=== PATIENT | male | born 1995 | race Asian ===

== ENCOUNTER 2018-07-01 02:02 | Emergency (ER) | payer BC ==
[~2018-07-01] VITALS: Ht 172.7 cm; Wt 68.0 kg
[2018-07-01 02:05] VITALS: BP 129/55
--- NOTE | 2018-07-01 02:05 | NUR ---
TO BED # 3 AMBULATORY, REPORT GIVEN GIULIANO GONCALVES
--- NOTE | 2018-07-01 02:05 | NUR ---
PT PRESENTS TO ED WITH C/O ETOH INTOXICATION WITH N/V. PT STATES "I DRANK WAY TOO MUCH BEER AND WHISKEY" PT DENIES PAIN AT THIS TIME. PT ANSWERING IN COMPLETE SENTECES. OBVIOUS ODOR OF ETOH PRESENT. GIRLFIREND AT BEDSIDE. PT PLACED INTO BED, PENDING MD HUDSON. PMH--NONE RX--NONE
[2018-07-01] MEDS ORDERED: ONDANSETRON 4 MG/2 ML VIAL IVP ONE (02:15)
[2018-07-01] MEDS ORDERED: NACL 0.9% 1,000 ML IV ONE (02:15)
--- NOTE | 2018-07-01 02:32 | NUR ---
ATTEMPTED TO MEDICATE PT WITH IV ZOFRAN ORDERED BY ER MD LOPEZ, PT REFUSED MEDICATION STATING "I JUST WANT THE FLUIDS". EDUCATED PT OF MEDICATION PURPOSE AND PT STILL REFUSED. ER MADE AWARE.
--- NOTE | 2018-07-01 02:39 | NUR ---
PER ER - VICTOR MANUEL PT WHEN FLUIDS COMPLETE
[2018-07-01 02:57] VITALS: BP 129/55
--- NOTE | 2018-07-01 02:57 | NUR ---
Patient discharged with v/s stable. Written and verbal after care instructions given and explained. Patient verbalized understanding. Ambulatory with steady gait. All questions addressed prior to discharge. Advised to follow up with PMD.
== END 2018-07-01 02:57 | disposition home or self-care (01) ==
LOC: MED 02:02
DX: F10.129 Alcohol abuse with intoxication, unspecified (principal); R11.2 Nausea with vomiting, unspecified
CPT/HCPCS: 99283; J2405; J7030; 96360

== ENCOUNTER 2024-05-23 01:55 | Emergency (ER) | payer BC, OTHER ==
[~2024-05-23] VITALS: Ht 175.3 cm; Wt 80.7 kg
[2024-05-23 02:01] VITALS: BP 117/73; PULSE 110; RESP 18; TEMP 98; O2SAT 99
[2024-05-23 02:23] VITALS: BP 117/73; PULSE 110; RESP 18; TEMP 98; O2SAT 99
[2024-05-23] MEDS: NACL 0.9% 1,000 ML IV ONE (02:27)
== END 2024-05-23 03:44 | disposition home or self-care (01) ==
LOC: MED 01:55
DX: F10.129 Alcohol abuse with intoxication, unspecified (principal); R11.2 Nausea with vomiting, unspecified; Y90.9 Presence of alcohol in blood, level not specified
CPT/HCPCS: 96360; 99283; J7030